=== PATIENT | male | born 1980 | race African-American/Black ===

== ENCOUNTER 2023-06-25 09:14 | Emergency (ER) | payer MEDICAID ==
[~2023-06-25] VITALS: Ht 175.3 cm; Wt 110.0 kg
[2023-06-25 09:26] VITALS: O2SAT 98
[2023-06-25] MEDS ORDERED: ONDANSETRON HCL 4MG/2ML INJ IV STA (09:32)
[2023-06-25] MEDS ORDERED: SODIUM CHLORIDE 0.9% 1,000 ML IV ONE (09:45)
[2023-06-25 10:06] LABS: BASOPHILS % 1.3 % (0.0-2.0); EOSINOPHILS % 2.9 % (0.0-5.0); HEMATOCRIT. 42.8 % (42.0-52.0); HEMOGLOBIN. 14.8 g/dL (14.0-18.0); LYMPHOCYTES % 22.1 % (20.0-50.0); MEAN CORPUSCULAR HEMOGLOBIN 28.8 pg (28.0-32.0); MEAN CORPUSCULAR HGB CONC 34.7 g/dL (31.0-37.0); MEAN CORPUSCULAR VOLUME 83.2 fL (80.0-94.0); MEAN PLATELET VOLUME 7.7 fl (7.4-10.4); MONOCYTES % 6.2 % (2.0-8.0); NEUTROPHILS % 67.5 % (40.0-76.0); PLATELET 322 x1000/uL (130-400); RED BLOOD CELL COUNT 5.15 mill/uL (4.7-6.1); RED CELL DISTRIBUTION WIDTH 13.9 % (11.6-14.6)
[2023-06-25 10:58] LABS: CHLORIDE 98 mEq/L (98-107); INDEX HEMOLYSI 1 (1-3); INDEX ICTERIC 1 (1-4); INDEX LIPEMIC 1 (1-3); POTASSIUM 4.1 mEq/L (3.5-5.1); SODIUM 135 mEq/L (136-145)
[2023-06-25 11:31] LABS: CLARITY URINE CLEAR (CLEAR); COLOR URINE YELLOW (YELLOW); GLUCOSE URINE 3+ (NEGATIVE); KETONES URINE NEGATIVE (NEGATIVE); LEUKOCYTE ESTERASE URINE 1+ (NEGATIVE); NITRITE URINE NEGATIVE (NEGATIVE); OCCULT BLOOD URINE 1+ (NEGATIVE); PH URINE 6.5 (4.5-8.0); PROTEIN URINE 3+ (NEGATIVE); SPECIFIC GRAVITY URINE 1.015 (1.005-1.030); UROBILINOGEN URINE 0.2 E.U./dL (0.2-1.0)
[2023-06-25 11:44] LABS: ALANINE AMINOTRANSFERASE 18 IU/L (13-61); ALBUMIN 3.7 g/dL (3.4-5.0); ASPARTATE AMINOTRANSFERASE 11 IU/L (15-37); BETA HYDROXYBUTYRATE 0.1 mMol/L (0.0-0.3); CALCIUM 9.5 mg/dL (8.5-10.1); CARBON DIOXIDE 30 mEq/L (21-32); CREATININE 0.9 mg/dL (0.6-1.3); ETHANOL BLOOD < 10 mg/dL (<10); GLUCOSE 282 mg/dL (70-105); PROTEIN TOTAL 8.5 g/dL (6.0-8.3); UREA NITROGEN BLOOD 8 mg/dL (7-21)
[2023-06-25] MEDS ORDERED: ONDANSETRON HCL 4MG/2ML INJ IV NR (11:45)
[2023-06-25 11:53] LABS: HYALINE CASTS URINE 0-5 /lpf; SQUAMOUS EPITHELIAL CELL URINE 2+ /lpf (RARE/1+)
[2023-06-25 11:54] LABS: MUCUS URINE TRACE /lpf (NONE/TRACE)
[2023-06-25 11:55] LABS: BACTERIA URINE 2+; RBC URINE 0-2 /hpf (0-2)
[2023-06-25 11:56] LABS: *AMPHETAMINES SCREEN URINE NEGATIVE (NEGATIVE); *BARBITURATES SCREEN URINE NEGATIVE (NEGATIVE); *BENZODIAZEPINES SCREEN URINE NEGATIVE (NEGATIVE); *COCAINE SCREEN URINE NEGATIVE (NEGATIVE); CANNABINOID URINE SCREEN PRESUMTIVE POSITIVE (NEGATIVE); ECSTASY MDMA SCREEN URINE NEGATIVE (NEGATIVE); OPIATES URINE SCREEN NEGATIVE (NEGATIVE); PHENCYCLIDINE URINE SCREEN NEGATIVE (NEGATIVE)
[2023-06-25] MEDS ORDERED: CLOT15CR27 TP (14:06)
[2023-06-25] MEDS ORDERED: MUPI15CR11 TP (14:06)
[2023-06-25] MEDS ORDERED: [UNRECOGNIZED DRUG - CODE] MC (14:19)
[2023-06-25] MEDS ORDERED: INSU1CAR (14:19)
[2023-06-25] MEDS ORDERED: INSLIS SUBCUT (14:19)
[2023-06-25 15:17] VITALS: BP 171/102; PULSE 68; RESP 19; TEMP 98.3
== END 2023-06-25 15:18 | disposition home or self-care (01) ==
LOC: ER 09:22
DX: N48.1 Balanitis (principal); E11.65 Type 2 diabetes mellitus with hyperglycemia; I10 Essential (primary) hypertension; E78.00 Pure hypercholesterolemia, unspecified
CPT/HCPCS: 80053; 80305; 81003; 82010; 80320; 83690; 85025; 87086; 36415; 74176; 96361; 96374; 99285; J2405; J7030; Z7610 ×3; G0480

== ENCOUNTER 2023-10-26 17:16 | Emergency (ER) | payer MEDICAID, OTHER ==
[~2023-10-26] VITALS: Ht 175.3 cm; Wt 145.1 kg
[~2023-10-26 17:16] MED LIST: CLOT15CR27 TP; INSLIS SUBCUT; INSU1CAR; MUPI15CR11 TP; [UNRECOGNIZED DRUG - CODE] MC
[2023-10-26 17:46] VITALS: BP 159/104; PULSE 60; RESP 16; TEMP 98.4; O2SAT 99
[2023-10-26 19:26] LABS: CLARITY URINE CLEAR (CLEAR); COLOR URINE YELLOW (YELLOW); GLUCOSE URINE NEGATIVE (NEGATIVE); KETONES URINE TRACE (NEGATIVE); LEUKOCYTE ESTERASE URINE NEGATIVE (NEGATIVE); NITRITE URINE NEGATIVE (NEGATIVE); OCCULT BLOOD URINE NEGATIVE (NEGATIVE); PROTEIN URINE 1+ (NEGATIVE); SPECIFIC GRAVITY URINE 1.015 (1.005-1.030); UROBILINOGEN URINE 0.2 E.U./dL (0.2-1.0)
[2023-10-26 19:46] LABS: RBC URINE 0-2 /hpf (0-2); WBC URINE 0-2 /hpf (0-2)
[2023-10-26 19:47] LABS: BACTERIA URINE NONE SEEN; SQUAMOUS EPITHELIAL CELL URINE NONE SEEN /lpf (RARE/1+)
[2023-10-26 19:56] LABS: BASOPHILS % 0.6 % (0.0-2.0); EOSINOPHILS % 2.1 % (0.0-5.0); HEMATOCRIT. 40.1 % (42.0-52.0); HEMOGLOBIN. 13.6 g/dL (14.0-18.0); LYMPHOCYTES % 30.9 % (20.0-50.0); MEAN CORPUSCULAR HEMOGLOBIN 28.3 pg (28.0-32.0); MEAN CORPUSCULAR HGB CONC 33.9 g/dL (31.0-37.0); MEAN CORPUSCULAR VOLUME 83.5 fL (80.0-94.0); MEAN PLATELET VOLUME 7.5 fl (7.4-10.4); MONOCYTES % 7.8 % (2.0-8.0); NEUTROPHILS % 58.6 % (40.0-76.0); PLATELET 317 x1000/uL (130-400); RED CELL DISTRIBUTION WIDTH 13.3 % (11.6-14.6); WHITE BLOOD COUNT 8.5 x1000/uL (4.5-11.0)
[2023-10-26 20:10] LABS: ALANINE AMINOTRANSFERASE 16 IU/L (10-49); ALBUMIN 4.8 g/dL (3.2-4.8); ASPARTATE AMINOTRANSFERASE 13 IU/L (<34); BILIRUBIN TOTAL 0.7 mg/dL (0.1-1.0); CALCIUM 9.4 mg/dL (8.7-10.4); CARBON DIOXIDE 31 mEq/L (21-32); CHLORIDE 100 mEq/L (98-107); CREATININE 0.9 mg/dL (0.6-1.3); POTASSIUM 3.5 mEq/L (3.5-5.1); PROTEIN TOTAL 8.2 g/dL (6.0-8.3); SODIUM 137 mEq/L (136-145); TROPONIN I HIGH SENSITIVITY 4 ng/L (3.0-53); UREA NITROGEN BLOOD 6 mg/dL (9-23)
[2023-10-26 20:13] LABS: GLUCOSE 114 mg/dL (70-105)
== END 2023-10-27 00:22 | disposition left against medical advice (07) ==
LOC: ER 17:16
DX: R10.9 Unspecified abdominal pain (principal); E11.9 Type 2 diabetes mellitus without complications; I10 Essential (primary) hypertension; E78.00 Pure hypercholesterolemia, unspecified
CPT/HCPCS: 36415; 80053; 81003; 84484; 85025; 99283

== ENCOUNTER 2025-08-26 05:26 | Inpatient (IN) | payer OTHER ==
[~2025-08-26] VITALS: Ht 175.3 cm; Wt 144.7 kg
[2025-08-26] MEDS: SODIUM CHLORIDE 0.9% 1,000 ML IV ONE (06:30)
[2025-08-26] MEDS: DIPHENHYDRAMINE 50MG/ML VIAL IV ONE (06:41)
[2025-08-26] MEDS: KETOROLAC 15MG/ML VIAL IV ONE (06:42)
[2025-08-26] MEDS: METOCLOPRAMIDE HCL 10MG/2ML VIAL IV ONE (06:42)
[2025-08-26] MEDS: ACETAMINOPHEN 500MG TABLET PO ONE (06:43)
[2025-08-26] MEDS: SODIUM CHLORIDE 0.9% (SEPSIS BOLUS) IV ONE (06:43)
[2025-08-26] MEDS: CEFTRIAXONE 1GM/50ML 50 ML IV ONE (06:58)
[2025-08-26 07:29] LABS: BASOPHILS % 0.2 % (0.0-2.0); EOSINOPHILS % 0.1 % (0.0-5.0); HEMATOCRIT. 38.7 % (42.0-52.0); HEMOGLOBIN. 13.3 g/dL (14.0-18.0); INR 1.1; LYMPHOCYTES % 8.7 % (20.0-50.0); MEAN PLATELET VOLUME 8.7 fl (7.4-10.4); MONOCYTES % 6.0 % (2.0-8.0); NEUTROPHILS % 85.0 % (40.0-76.0); PLATELET 197 x1000/uL (130-400); RED BLOOD CELL COUNT 4.56 mill/uL (4.7-6.1); RED CELL DISTRIBUTION WIDTH 13.8 % (11.6-14.6)
[2025-08-26 07:33] LABS: CREATININE 1.0 mg/dL (0.6-1.3); UREA NITROGEN BLOOD 8 mg/dL (9-23)
[2025-08-26 07:34] LABS: ASPARTATE AMINOTRANSFERASE 52 IU/L (<34); PROTEIN TOTAL 7.2 g/dL (6.0-8.3); TROPONIN I HIGH SENSITIVITY 11 ng/L (3.0-53)
[2025-08-26 07:35] LABS: BILIRUBIN DIRECT 0.3 mg/dL (<=3.0); BILIRUBIN TOTAL 1.1 mg/dL (0.1-1.0)
[2025-08-26] MEDS: AZITHROMYCIN 500MG/250ML 250 ML IV ONE (07:47)
[2025-08-26 07:51] LABS: INFLUENZA TYPE A Presumptive Negative (Pres. Neg.); INFLUENZA TYPE B Presumptive Negative (Pres. Neg.); RESPIRATORY SYNCYTIAL VIRUS Not Detected (Not Detectd)
[2025-08-26 08:05] LABS: CLARITY URINE CLEAR (CLEAR); COLOR URINE YELLOW (YELLOW); GLUCOSE URINE NEGATIVE (NEGATIVE); KETONES URINE NEGATIVE (NEGATIVE); LEUKOCYTE ESTERASE URINE NEGATIVE (NEGATIVE); NITRITE URINE NEGATIVE (NEGATIVE); OCCULT BLOOD URINE TRACE (NEGATIVE); PH URINE 7.5 (4.5-8.0); PROTEIN URINE 3+ (NEGATIVE); SPECIFIC GRAVITY URINE 1.015 (1.005-1.030); UROBILINOGEN URINE 1.0 E.U./dL (0.2-1.0)
[2025-08-26 08:38] LABS: BACTERIA URINE NONE SEEN; RBC URINE 0-2 /hpf (0-2); SQUAMOUS EPITHELIAL CELL URINE RARE /lpf (RARE/1+); WBC URINE 0-2 /hpf (0-2); YEAST URINE NONE SEEN
[2025-08-26 08:52] LABS: TROPONIN I HIGH SENSITIVITY 12 ng/L (3.0-53)
[2025-08-26] MEDS: NIFEDIPINE XL 60MG TAB PO SCH (11:59)
[2025-08-26 12:00] VITALS: BP 224/127; PULSE 94; RESP 19; TEMP 36.9
[2025-08-26] MEDS ORDERED: ONDANSETRON HCL 4MG/2ML INJ IV PRN (12:00)
[2025-08-26] MEDS: HYDRALAZINE 20MG/ML VIAL IV SCH (12:00)
[2025-08-26 16:00] VITALS: BP 167/91; PULSE 117; RESP 18; TEMP 37.2
[2025-08-26 16:12] VITALS: BP 167/91; PULSE 117; RESP 18; TEMP 37.1964
[2025-08-26 20:00] VITALS: BP 168/95; PULSE 112; RESP 20; TEMP 38.8; O2SAT 95
[2025-08-26] MEDS: ACETAMINOPHEN 325MG TABLET PO PRN (20:04)
[2025-08-26 20:58] VITALS: PULSE 88; RESP 20; O2SAT 98
[2025-08-26] MEDS: IPRATROPIUM/ALBUTEROL 0.5-3(2.5)MG/3ML NEB HHN SCH (21:15)
[2025-08-27] VITALS (9 sets, daily range): BP systolic 137–181; BP diastolic 86–109; PULSE 76–129; RESP 18–20; TEMP 36.6–37.6; O2SAT 92–98
[2025-08-27] MEDS: HYDRALAZINE 20MG/ML VIAL IV PRN (00:19)
[2025-08-27] MEDS: METOPROLOL TARTRATE 50MG TABLET PO SCH (03:54)
[2025-08-27] MEDS ORDERED: CEFTRIAXONE 1GM/50ML 50 ML IV SCH (06:00)
[2025-08-27 06:38] LABS: HEMATOCRIT. 43.9 % (42.0-52.0); HEMOGLOBIN. 15.1 g/dL (14.0-18.0); MEAN PLATELET VOLUME 7.9 fl (7.4-10.4); PLATELET 190 x1000/uL (130-400); RED BLOOD CELL COUNT 5.22 mill/uL (4.7-6.1); RED CELL DISTRIBUTION WIDTH 13.9 % (11.6-14.6)
[2025-08-27 06:39] LABS: CREATININE 0.9 mg/dL (0.6-1.3)
[2025-08-27 06:40] LABS: UREA NITROGEN BLOOD 7 mg/dL (9-23)
[2025-08-27] MEDS: AZITHROMYCIN 500 MG TABLET PO SCH (08:54)
[2025-08-27] MEDS: CEFTRIAXONE 1GM/50ML 50 ML IV SCH (10:01)
[2025-08-27] MEDS: POTASSIUM CHLORIDE 20MEQ TABLET SR PO NR (14:04)
[2025-08-27 16:28] LABS: BAND% 5.0 % (1.0-6.0); LYMPHOCYTES % MANUAL 6.0 % (20.0-50.0); MONOCYTES % MANUAL 5.0 % (2.0-8.0); NEUTROPHILS % MANUAL 84.0 % (45.0-75.0); PLATELET ESTIMATE NORMAL
[2025-08-28] VITALS (7 sets, daily range): BP systolic 131–158; BP diastolic 80–96; PULSE 95–105; RESP 16–20; TEMP 36.6–36.8; O2SAT 94–98
[2025-08-28] MEDS ORDERED: METO-539 PO (09:42)
[2025-08-28] MEDS ORDERED: NIFE-32 PO (09:42)
== END 2025-08-28 14:17 | disposition home or self-care (01) | DRG 199 ==
LOC: ER 05:26 → 7WST 08:24 → EDBEDREQTM 08:27 → EDBEDREQ 08:27
PROVIDERS: ADMIT Internal Medicine; ATTEND Internal Medicine
DX: I16.0 Hypertensive urgency (principal); I24.89 Other forms of acute ischemic heart disease; B34.9 Viral infection, unspecified; E11.9 Type 2 diabetes mellitus without complications; E66.01 Morbid (severe) obesity due to excess calories; R65.10 Systemic inflammatory response syndrome (SIRS) of non-infectious origin without acute organ dysfunction; I10 Essential (primary) hypertension; Z68.42 Body mass index [BMI] 45.0-49.9, adult; E78.00 Pure hypercholesterolemia, unspecified; Z79.4 Long term (current) use of insulin; Z79.899 Other long term (current) drug therapy
CPT/HCPCS: 36415; 71045; 80048; 80076; 81003; 82962; 83036; 83605; 83880; 84145; 84484; 85025; 87420; 87426; 87804; 93005; 94070; 94640; 94664; 94760; 96365; 96367; 96375; 98960; 99291; J0360; J0456; J0696; J1200; J1885; J2765; J7030